=== PATIENT | female | born 1960 | race Caucasian/White ===

== ENCOUNTER 2017-06-30 05:50 | Inpatient (IN) | payer BC ==
[2017-06-30] VITALS (26 sets, daily range): BP systolic 94–116; BP diastolic 5–59; PULSE 65–100; RESP 10–19; Ht 167.6 cm; Wt 71.6 kg
[~2017-06-30] VITALS: Ht 167.6 cm; Wt 71.6 kg
[2017-06-30] MEDS ORDERED: GELATIN SIZE 100 SPONGE ONE (06:43)
[2017-06-30] MEDS ORDERED: BUPIVACAINE 0.5%/EPI (SDV) 30 ML INJ ONE (06:43)
[2017-06-30] MEDS ORDERED: THROMBIN 5000 UNIT VIAL ONE (06:44)
[2017-06-30] MEDS ORDERED: METOPROLOL 5 MG INJ ONE (07:00)
[2017-06-30] MEDS ORDERED: GLYCOPYRROLATE 0.4 MG INJ ONE (07:00)
[2017-06-30] MEDS ORDERED: NEOSTIGMINE 3 MG/3 ML SYRINGE ONE (07:00)
--- NOTE | 2017-06-30 07:03 | HPN ---
Date/Time of Note Date/Time of Note DATE: 06/30/17 TIME: 07:02 Interval H&P Admission Note Pt. seen H&P reviewed: No system changes ALYSIA FREDERICK MD Jun 30, 2017 07:03
[2017-06-30] MEDS ORDERED: RANI300T PO (07:21)
[2017-06-30] MEDS ORDERED: LUBI8CAP4 PO (07:21)
[2017-06-30] MEDS ORDERED: DULO30CA45 PO (07:21)
[2017-06-30] MEDS ORDERED: GABA400C14 PO (07:21)
[2017-06-30] MEDS ORDERED: LEVO2.5S7 PO (07:21)
[2017-06-30] MEDS ORDERED: LEVO88TA3 PO (07:21)
[2017-06-30] MEDS ORDERED: OXYC5CAP17 PO (07:21)
[2017-06-30] MEDS ORDERED: HYDR-3011 PO (07:21)
[2017-06-30] MEDS ORDERED: CETI5SOL PO (07:21)
[2017-06-30] MEDS ORDERED: MIDAZOLAM 1 MG/ML 2 ML INJ ONE (07:37)
[2017-06-30] MEDS ORDERED: hydrALAzine 20 MG INJ ONE (09:33)
[2017-06-30] MEDS ORDERED: morphine 10 MG INJ ONE (10:59)
[2017-06-30] MEDS ORDERED: ONDANSETRON 4 MG INJ ONE (12:01)
[2017-06-30] MEDS ORDERED: ROCURONIUM 50 MG INJ ONE (12:01)
[2017-06-30] MEDS ORDERED: LIDOCAINE 2% (SDV) 5 ML INJ ONE (12:01)
[2017-06-30] MEDS ORDERED: PROPOFOL 20 ML ONE (12:01)
[2017-06-30] MEDS ORDERED: DEXAMETHASONE 4 MG/ML 1 ML INJ ONE ×2 (12:01→12:57)
[2017-06-30] MEDS ORDERED: CEFAZOLIN 1 GM INJ ONE (12:18)
[2017-06-30] MEDS ORDERED: NALOXONE (0.4 MG/ML) INJ IV PRN (12:30)
[2017-06-30] MEDS ORDERED: METOCLOPRAMIDE 10 MG INJ IV PRN (12:30)
[2017-06-30] MEDS ORDERED: FENTAnyl 50 MCG/ML VIAL IV PRN (12:30)
[2017-06-30] MEDS ORDERED: NACL 0.9% 3 ML SYG IV SCH (12:30)
[2017-06-30] MEDS ORDERED: HYDROmorphONE (0.2 MG/ML) 10ML SYG IV PRN ×2 (12:30)
[2017-06-30] MEDS ORDERED: ACETAMINOPHEN 325 MG TAB PO PRN (12:30)
[2017-06-30] MEDS ORDERED: DIPHENHYDRAMINE 50 MG INJ IV PRN (12:30)
[2017-06-30] MEDS ORDERED: MEPERIDINE 25 MG INJ IV PRN (12:30)
[2017-06-30] MEDS ORDERED: ONDANSETRON 4 MG INJ IV PRN ×2 (12:30)
[2017-06-30] MEDS ORDERED: PROCHLORPERAZINE 10 MG TAB PO PRN (12:30)
--- NOTE | 2017-06-30 12:54 | OPR ---
Date/Time of Note Date/Time of Note DATE: 06/30/17 TIME: 12:34 Operative Report Free Text/Dictation DATE OF OPERATION: 06/30/2017 PREOPERATIVE DIAGNOSES: C5-6 right greater than left foraminal stenosis with cervical canal stenosis with disk space narrowing and degenerative disk changes POSTOPERATIVE DIAGNOSES: C5-6 right greater than left foraminal stenosis with cervical canal stenosis with disk space narrowing and degenerative disk changes OPERATION PERFORMED: 1. Anterior cervical C5-6 diskectomy. 2. Anterior cervical disc instrumented fusion with allograft 3. Operative microscope. SURGEON: Alysia Frederick MD YARD SWITCH OPERATOR: Dr. Serrano INDICATIONS: Mrs. Barbosa is 56-year-old female who presents with a several year history of neck and a several month history of right greater than left upper extremity pain that has been increasing and refractory to conservative management associated with extension and rotation as well as axial loading. Preoperative imaging studies demonstrated disk degeneration and a right sided HNP at the C5-6 level compressing her right C6 nerve root. After having failed all attempts at conservative management, she understood the risks included, but were not limited to, infection, neurologic injury, blood loss, dural tear, persistence of preoperative symptoms and a potential need for further operative procedures and elected to proceed with surgery. PROCEDURE IN DETAIL: The patient was identified in the pre-operative area where the operative site was marked in indelible ink. She was brought in the operating room. General anesthesia was obtained. Preoperative antibiotics were given. She was carefully positioned supine on the radiolucent table. The arms were padded and tucked at the sides. The neck was sterilely prepped and draped in the usual fashion. A standard left-sided skin incision was made in a prominent anterior skin fold. This was continued down through subcutaneous tissue to the platysma fascia. Full-thickness skin flaps were developed. The platysma was split in line with the direction of its fibers. The dissection proceeded through the deep cervical fascia at the interval between the esophagus and spine. The prevertebral fascia was carefully incised, cleared off at the anterior aspect of the C5-6 disk space. The anterior longitudinal ligament was carefully isolated as was the longus coli bilaterally. A Hollis retraction cannula was placed into the C5 vertebral body, and an intraoperative radiograph was obtained to confirm the location of the midline along with the operative level. Once this was confirmed, a 2nd Hollis pin was placed in the C6 vertebral body, and the longus colli was mobilized bilaterally using bipolar cautery and an elevator. A deep self-retaining retractor was placed underneath the longus colli bilaterally and then distraction was applied across the interspace. The operative microscope was at this point brought in. The osteophyte projecting over the anterior aspect of the C5-6 disk space was at this point resected with a spinal rongeur, and then the anterior portion of the disk was incised with a #15 blade. The disk was excised in its entirety using a series of pituitary rongeurs and angled curettes back to the posterior longitudinal ligament. The uncovertebral osteophyte was resected to allow for foraminal decompression. A foraminotomy was performed bilaterally until a probe could be easily passed along the pathway of the C6 nerve roots. Hemostasis was obtained at this point, and then a series of trial sizers were used to select an appropriated size allograft spacer. Care was take not to disrupt the endplates. Intraoperative radiographs demonstrated good alignment of the trial, and then the final implant was selected and then inserted into the disk space. Once this was positioned appropriately and extended to the back of the C5and C6 vertebral bodies and appropriate sized plate was placed and secured in standard fashion. X-Rays were taken to ensure appropriate alignment and length of the plate as well as screw sizes. The operative site was washed out extensively with sterile normal saline. There was no significant bleeding. The Jasper pins were removed, and the sites were blocked off with bone wax. The platysma fascia was then closed with 3-0 Vicryl suture in a running simple fashion over a medium hemovac drain, followed by 4-0 Monocryl in a running subcuticular fashion. Dermabond was placed, followed by a sterile dressing. The patient was extubated and transferred out to the postanesthesia care unit in a soft collar in good condition. There were no complications. Implants: 6mm Lordotic advanced ACF spacer with Fibergraft biolgics, 12 mm Plate x1, 14 mm screws x 4 Preoperative Diagnosis C5-6 right greater than left foraminal stenosis with cervical canal stenosis with disk space narrowing and degenerative disk changes Postoperative Diagnosis C5-6 right greater than left foraminal stenosis with cervical canal stenosis with disk space narrowing and degenerative disk changes Surgeon see signature line Press Operator Meat Dr. Mouradian Anesthesia Type: general Estimated Blood Loss: 0 - 10 ml's Transfusion none Specimen C5-6 disk Grafts/Implants Implants: 6mm Lordotic advanced ACF spacer with Fibergraft biolgics, 12 mm Plate x1, 14 mm screws x 4 Complications none Pt Condition Post Procedure: stable Disposition: PACU Procedure Description PROCEDURE IN DETAIL: The patient was identified in the pre-operative area where the operative site was marked in indelible ink. She was brought in the operating room. General anesthesia was obtained. Preoperative antibiotics were given. She was carefully positioned supine on the radiolucent table. The arms were padded and tucked at the sides. The neck was sterilely prepped and draped in the usual fashion. A standard left-sided skin incision was made in a prominent anterior skin fold. This was continued down through subcutaneous tissue to the platysma fascia. Full-thickness skin flaps were developed. The platysma was split in line with the direction of its fibers. The dissection proceeded through the deep cervical fascia at the interval between the esophagus and spine. The prevertebral fascia was carefully incised, cleared off at the anterior aspect of the C5-6 disk space. The anterior longitudinal ligament was carefully isolated as was the longus coli bilaterally. A Hollis retraction cannula was placed into the C5 vertebral body, and an intraoperative radiograph was obtained to confirm the location of the midline along with the operative level. Once this was confirmed, a 2nd Hollis pin was placed in the C6 vertebral body, and the longus colli was mobilized bilaterally using bipolar cautery and an elevator. A deep self-retaining retractor was placed underneath the longus colli bilaterally and then distraction was applied across the interspace. The operative microscope was at this point brought in. The osteophyte projecting over the anterior aspect of the C5-6 disk space was at this point resected with a spinal rongeur, and then the anterior portion of the disk was incised with a #15 blade. The disk was excised in its entirety using a series of pituitary rongeurs and angled curettes back to the posterior longitudinal ligament. The uncovertebral osteophyte was resected to allow for foraminal decompression. A foraminotomy was performed bilaterally until a probe could be easily passed along the pathway of the C6 nerve roots. Hemostasis was obtained at this point, and then a series of trial sizers were used to select an appropriated size allograft spacer. Care was take not to disrupt the endplates. Intraoperative radiographs demonstrated good alignment of the trial, and then the final implant was selected and then inserted into the disk space. Once this was positioned appropriately and extended to the back of the C5and C6 vertebral bodies and appropriate sized plate was placed and secured in standard fashion. X-Rays were taken to ensure appropriate alignment and length of the plate as well as screw sizes. The operative site was washed out extensively with sterile normal saline. There was no significant bleeding. The Nadeem pins were removed, and the sites were blocked off with bone wax. The platysma fascia was then closed with 3-0 Vicryl suture in a running simple fashion over a medium hemovac drain, followed by 4-0 Monocryl in a running subcuticular fashion. Dermabond was placed, followed by a sterile dressing. The patient was extubated and transferred out to the postanesthesia care unit in a soft collar in good condition. There were no complications. ALYSIA FREDERICK MD Jun 30, 2017 12:52
[2017-06-30] MEDS ORDERED: HYDROmorphONE 0.2 MG/ML PCA ONE (13:03)
--- NOTE | 2017-06-30 13:22 | CONS ---
Date/Time of Note Date/Time of Note DATE: 06/30/17 TIME: 13:13 Assessment/Plan Assessment/Plan Problems: (1) S/P cervical spinal fusion Onset Date: ~ 06/30/2017 Status: Acute Comment: She is immediately postop. While there is no evidence of any untoward complications given her smoking history and concerned there may be some degree of lung disease despite her chest x-ray not having been interpreted as increased airspaces. Will keep a careful eye on this. (2) Irritable bowel syndrome with constipation Status: Chronic Comment: Continue with her amities of therapy. (3) Tobacco abuse Status: Chronic Comment: Noted. Given that she is can be in the hospital and place her on nicotine patch to avoid any nicotine withdrawal syndrome symptoms (4) Fibromyalgia Status: Chronic Comment: Continue with duloxetine and gabapentin (5) Dermatitis Status: Chronic Comment: Noted. She will continue her medications as well as duloxetine. Please note that the steroids were given to decrease the swelling for the cervical spine surgery will be beneficial for this as a secondary effect (6) Postprocedural hypothyroidism Status: Chronic Comment: Noted continue replacement therapy (7) Dysthymia Status: Chronic Comment: Continue with medication therapy Consultation Date/Type/Reason Admit Date/Time Jun 30, 2017 at 05:50 Date of Consultation: Jun 30, 2017 Type of Consultation: Internal medicine Reason for Consultation Post Operative assistance after anterior approach cervical spine fusion Referring Provider: ALYSIA FREDERICK MD Hx of Present Illness 56-year-old right-handed female seen postoperative after cervical spine fusion surgery. She has a history of both lumbar and cervical spine disease and had rather significant cervical spine disease with upper extremity radiculopathy. Is cleared for surgery by her primary physician Dr. Bailey Arceo and is now seen in the anesthesia recovery unit. Constitutional: no complaints (Denies fevers chills or sweats) Eyes: no complaints ENT: pain (Complains of neck pain at the and surgical incision site otherwise no complaint) Respiratory: no complaints (No dyspnea) Cardiovascular: no complaints Gastrointestinal: no complaints Genitourinary: no complaints Musculoskeletal: neck pain Skin: no complaints Neurologic: no complaints Endocrine: no complaints Lymphatic: no complaints Past Medical History Medical History: GERD, hypothyroid, irritable bowel syndrome (Constipation type ), other (Reported history of endometriosis according Dr. Clemente does not also reported history of emphysema which the patient reports she is unaware of this; dermatitis type unknown-with hives) Past Surgical History Past Surgical Hx: other (Status post tonsillectomy; status post ; status post thyroidectomy; status post bilateral breast augmentation; status post right foot surgery; status post laparotomy) Family History Significant Family History: no pertinent family hx Social History Born in [facility] and raised. She is lives with her she is unemployed. Alcohol Use: rarely Smoking Status: Current every day smoker (2 packs per day) Drug Use: none Exam/Review of Systems Vital Signs Vitals Vital Signs Date Time Temp Pulse Resp B/P Pulse Ox O2 Delivery O2 Flow Rate FiO2 06/30/17 12:46 98.0 06/30/17 07:02 65 18 95/5 100 Room Air Exam Constitutional: alert Head: atraumatic, normocephalic Eyes: EOMI, PERRL, nl conjunctiva, nl lids, nl sclera ENMT: mucosa pink and moist, nl external ears & nose, nl lips & teeth, nl nasal mucosa & septum Neck: other (Anterior dressing. Did not attempt to move her neck around that she is immediately postop.) Respiratory: clear to auscultation, diminished breath sounds (Some decreased IT ratio) Cardiovascular: nl pulses, regular rate and rhythm Gastrointestinal: nl liver, spleen, non-tender, soft Extremities: normal pulses Neurological: CERTIFIED LEGAL SECRETARY SPECIALIST II-XII intact, nl mental status, nl speech Skin: nl turgor, rash or lesions Medications Medications Current Medications Acetaminophen/ Hydrocodone Bitart (Hubbard (5/325)) 1 tab Q4H PRN PO PAIN LEVEL 1 -5; Start 06/30/17 at 12:30; Status UNV Acetaminophen/ Hydrocodone Bitart 2 tab 2 tab Q4H PRN PO PAIN LEVEL 6-10; Start 06/30/17 at 12:30; Status UNV Cefazolin Sodium (Ancef 1 Gm/50 ml (Pmx)) 50 ml @ 100 mls/hr Q6 IVPB ; Start 06/30/17 at 18:00; Stop 07/01/17 at 12:29 Prochlorperazine (Compazine) 10 mg Q4H PRN PO NAUSEA AND/OR VOMITING; Start at 12:30 Ondansetron HCl (Zofran Inj) 4 mg Q6H PRN IV NAUSEA AND/OR VOMITING; Start 06/30/17 at 12:30; Status UNV Acetaminophen (Tylenol Tab) 650 mg Q4H PRN PO TEMP GREATER THAN 101F OR PA; Start 06/30/17 at 12:30; Status UNV Naloxone HCl (Narcan) 0.2 mg Q2M PRN IV RR 8 BREATHS/MIN OR LESS; Start at 12:30; Status UNV Hydromorphone HCl (Dilaudid STREET DEPARTMENT DISPATCHER) 0 MG/HR CONTINUOUS R... Q4PCA IV ; Start at 13:00; Status UNV Copies To: CC: ALYSIA FREDERICK MD, JOSHUA A MD Jun 30, 2017 13:22
[2017-06-30] MEDS: HYDROmorphONE 0.2 MG/ML PCA IV SCH ×2 (13:26→22:41)
[2017-06-30] MEDS ORDERED: hydrOXYzine HCL 25 MG TAB PO PRN (13:30)
--- NOTE | 2017-06-30 13:57 | RADRPT ---
PROCEDURE: XR fluoro guidance CLINICAL INDICATION: Cervical fusion C5-6 TECHNIQUE: Fluoroscopy performed. 8 images submitted. Total fluoro time: 68 seconds COMPARISON: None. FINDINGS: C5-6 ACDF performed. See operative/procedure report for details. IMPRESSION: Fluoroscopic guidance for C5-6 ACDF. RPTAT: VV .Tom Bryan MD, Date Time Electronically viewed and signed by .Tom Bryan MD, on 06/30/2017 13:57 .O/
[2017-06-30] MEDS ORDERED: NICOTINE (21 MG/24 HR) PATCH TRANSDERM SCH (15:00)
[2017-06-30] MEDS: CEFAZOLIN 1 GM/50 ML (PMX) 50 ML IVPB SCH ×2 (18:21→23:33)
[2017-06-30] MEDS: GABAPENTIN 400 MG CAP PO SCH (20:36)
[2017-06-30] MEDS: LUBIPROSTONE 8 MCG CAPSULE PO SCH (20:36)
[2017-06-30] MEDS ORDERED: RANITIDINE 150 MG TAB PO SCH (21:00)
[2017-07-01 00:30] VITALS: BP 99/56; RESP 18
[2017-07-01 04:00] VITALS: BP 105/59; PULSE 71; RESP 19
[2017-07-01 05:14] LABS: HEMATOCRIT 38.8 % (37.0-47.0); HEMOGLOBIN 13.5 g/dl (12.0-16.0)
[2017-07-01] MEDS: CEFAZOLIN 1 GM/50 ML (PMX) 50 ML IVPB SCH ×2 (05:21→11:39)
[2017-07-01 05:46] LABS: CALCIUM 8.8 mg/dl (8.4-10.2); CREATININE 0.73 mg/dl (0.44-1.00); POTASSIUM 4.3 mmol/L (3.5-5.1)
[2017-07-01] MEDS ORDERED: LEVOTHYROXINE 88 MCG TAB PO SCH (07:00)
[2017-07-01] MEDS ORDERED: HYDROCODONE/APAP (5/325) TAB PO PRN (07:30)
[2017-07-01] MEDS: HYDROCODONE/APAP (5/325) TAB PO PRN ×2 (07:39→11:39)
[2017-07-01] MEDS: LUBIPROSTONE 8 MCG CAPSULE PO SCH (08:02)
[2017-07-01] MEDS: GABAPENTIN 400 MG CAP PO SCH (08:03)
[2017-07-01 08:26] VITALS: BP 104/59; RESP 18
[2017-07-01] MEDS ORDERED: DULOXETINE 30 MG CAP DR PO SCH (09:00)
[2017-07-01] MEDS ORDERED: LORATADINE 10 MG TAB PO SCH (09:00)
--- NOTE | 2017-07-01 12:53 | PDOCDIS ---
Discharge Instructions CONDITION Patient Condition: Good HOME CARE INSTRUCTIONS: Diet Instructions: Modified FatSpecial Diet: soft diet ACTIVITY: Activity Restrictions: Avoid heavy lifting Bathing Restrictions: Shower FOLLOW UP/APPOINTMENTS Follow-up Plan follow-up in 2 weeks ALYSIA FREDERICK MD Jul 01, 2017 12:53
--- NOTE | 2017-07-01 13:04 | DS ---
Date/Time of Note Date/Time of Note DATE: 07/01/17 TIME: 13:01 Discharge Summary Admission/Discharge Info Admit Date/Time Jun 30, 2017 at 05:50 Discharge Date/Time July 01, 2017 Discharge Diagnosis Anterior cervical spine lumbar disc disease with radiculopathy status post cervical spine decompression with fusion; fibromyalgia; tobacco abuse; chronic obstructive pulmonary disease; dysthymia with anxiety Patient Condition: Fair Consults Internal medicine Procedures OPERATION PERFORMED: 1. Anterior cervical C5-6 diskectomy. 2. Anterior cervical disc instrumented fusion with allograft 3. Operative microscope. Hx of Present Illness Hx of Present Illness 56-year-old right-handed female seen postoperative after cervical spine fusion surgery. She has a history of both lumbar and cervical spine disease and had rather significant cervical spine disease with upper extremity radiculopathy. Is cleared for surgery by her primary physician Dr. Bailey Arceo and is now seen in the anesthesia recovery unit. Hospital Course 56-year-old right-handed female seen postoperative after cervical spine fusion surgery. She has a history of both lumbar and cervical spine disease and had rather significant cervical spine disease with upper extremity radiculopathy. Is cleared for surgery by her primary physician Dr. Bailey Arceo and is now seen in the anesthesia recovery unit. Patient had surgery and tolerated this without incident. She is now recuperating well and is stable for discharge. She has fair to good rehabilitation potential without communicable medical issues. She has been strongly counseled about tobacco cessation and will actually go home on nicotine patch. She will follow-up with the orthopedic surgeon in 2 weeks and with her primary care physician in 3 weeks Home Meds Reported Medications Ranitidine Hcl* (Ranitidine Hcl*) 300 Mg Tablet, 300 MG PO HS, #30 TAB 06/30/17 Cetirizine Hcl* (Cetirizine Hcl*) 5 Mg/5 Ml Solution, 10 MG PO DAILY, #300 ML 06/30/17 Levocetirizine Dihydrochloride (Xyzal) 2.5 Mg/5 Ml Solution, 5 MG PO QPM, ML 06/30/17 Hydroxyzine Hcl* (Hydroxyzine Hcl*) 25 Mg Tablet, 25 MG PO Q8H Y for ITCHING, # 30 TAB 06/30/17 Levothyroxine Sodium* (Levothyroxine Sodium*) 88 Mcg Tablet, 88 MCG PO BEFORE BREAKFAST, #30 TAB 06/30/17 Lubiprostone* (Amitiza*) 8 Mcg Capsule, 8 MCG PO BID, #60 CAP 06/30/17 Duloxetine Hcl* (Cymbalta*) 30 Mg Capsule.dr, 30 MG PO DAILY, CAP 06/30/17 Gabapentin* (Gabapentin*) 400 Mg Capsule, 800 MG PO TID, #180 CAP 06/30/17 Discontinued Reported Medications Oxycodone Hcl* (IR) (Oxycodone Hcl*) 5 Mg Capsule, 5 MG PO Q4H Y for PAIN, CAP 06/30/17 Follow-up Plan follow-up in 2 weeks Primary Care Provider Not On Staff Doctor Time spent on discharge: > 30 minutes Pending Labs Laboratory Tests Test 07/01/17 04:33 Hemoglobin 13.5g/dl (12.0-16.0) Hematocrit 38.8% (37.0-47.0) Sodium Level 135mmol/L (135-144) Potassium Level 4.3mmol/L (3.5-5.1) Chloride Level 103mmol/L (97-110) Carbon Dioxide Level 26mmol/L (21-31) Anion Gap 10 (8-16) Blood Urea Nitrogen 7mg/dl (7-20) Creatinine 0.73mg/dl (0.44-1.00) Glucose Level 115mg/dl (70-220) Calcium Level 8.8mg/dl (8.4-10.2) IBETH RENDON MD Jul 01, 2017 13:04
[2017-07-02] MEDS ORDERED: HYDROCODONE/APAP (5/325) TAB PO PRN ×2 (12:30)
== END 2017-07-01 13:39 | disposition home or self-care (01) | DRG 473 ==
LOC: REC 05:50 → MS1 13:59
PROVIDERS: ADMIT Orthopaedic Surgery; ATTEND Orthopaedic Surgery
PROC: 0RG10K0 Fusion of Cervical Vertebral Joint with Nonautologous Tissue Substitute, Anterior Approach, Anterior Column, Open Approach (ICD-10-PCS; 2017-06-30)
PROC: 0RB30ZZ Excision of Cervical Vertebral Disc, Open Approach (ICD-10-PCS; principal; 2017-06-30 07:30)
DX: M48.02 Spinal stenosis, cervical region (principal); R13.10 Dysphagia, unspecified; J44.9 Chronic obstructive pulmonary disease, unspecified; K58.1 Irritable bowel syndrome with constipation; M79.7 Fibromyalgia; M54.12 Radiculopathy, cervical region; L30.9 Dermatitis, unspecified; F17.200 Nicotine dependence, unspecified, uncomplicated; F41.9 Anxiety disorder, unspecified
CPT/HCPCS: 72050; 80048; 85014; 85018; 87086; 97116; 97162; 97530; J0360; J0690; J1100; J1170; J2250; J2270; J2405; J2710; J3010